=== PATIENT | male | born 1950 | race Caucasian/White ===

== ENCOUNTER 2022-08-16 12:41 | Inpatient (IN) | payer MEDICARE, OTHER ==
[~2022-08-16] VITALS: Ht 175.3 cm; Wt 81.6 kg
[2022-08-16] MEDS ORDERED: IV NORMAL SALINE 1000 ML BAG IV ONE (13:00)
[2022-08-16 13:26] LABS: HEMATOCRIT 44.2 % (36.7-47.1); MEAN CORPUSCULAR HEMOGLOBIN 29.5 uug (23.8-33.4); MEAN CORPUSCULAR VOLUME 88.5 fL (73.0-96.2); PLATELET COUNT (AUTO) 223 K/uL (152-348)
[2022-08-16] MEDS ORDERED: ATOR40TA PO (13:37)
[2022-08-16] MEDS ORDERED: ATEN50TA PO (13:37)
[2022-08-16] MEDS ORDERED: INSU100C SQ (13:37)
[2022-08-16] MEDS ORDERED: METF-442 PO (13:37)
[2022-08-16] MEDS ORDERED: INSU100V7 SQ (13:37)
[2022-08-16] MEDS ORDERED: ASPI81TA31 PO (13:37)
[2022-08-16 13:40] LABS: CARBON DIOXIDE 27 mmol/L (21-32); CHLORIDE 101 mmol/L (98-107); CREATININE 0.9 mg/dL (0.6-1.3); GLUCOSE 143 mg/dL (74-106); POTASSIUM 4.2 mmol/L (3.5-5.1); UREA NITROGEN, BLOOD 18 mg/dL (7-18)
[2022-08-16 13:53] LABS: ALANINE AMINOTRANSFERASE 17 U/L (16-63); ALKALINE PHOSPHATASE 54 U/L (50-136); ASPARTATE AMINOTRANSFERASE 17 U/L (15-37); BILIRUBIN,DIRECT 0.1 mg/dL (0.0-0.2); BILIRUBIN,TOTAL 0.3 mg/dL (0.2-1.0); TOTAL PROTEIN, SERUM 7.3 g/dL (6.4-8.2)
[2022-08-16 14:00] LABS: THYROID STIMULATING HORMONE 0.722 mIU/mL (0.358-3.740)
[2022-08-16] MEDS: ACETAMINOPHEN 325 MG TABLET PO ONE ×2 (14:28→14:51)
[2022-08-16] MEDS ORDERED: ACETAMINOPHEN 325 MG TABLET ONE (14:44)
[2022-08-16] MEDS ORDERED: CEFTRIAXONE 1 G in IV DEXTROSE 5% 50 ML IV ONE (15:00)
[2022-08-16] MEDS ORDERED: CEFTRIAXONE /D5W 50ML IVPB **ER PYXIS IV ONE (15:11)
[2022-08-16] MEDS ORDERED: AZITHROMYCIN IV 500 MG in IV DEXTROSE 5% 250 ML IV SCH (15:30)
[2022-08-16] MEDS ORDERED: MORPHINE SULFATE 2 MG/1 ML DISP.SYRIN IV PRN (15:30)
[2022-08-16] MEDS ORDERED: ACETAMINOPHEN 325 MG TABLET PO PRN (15:30)
[2022-08-16] MEDS ORDERED: ONDANSETRON 4 MG/2 ML VIAL IV PRN (15:30)
[2022-08-16] MEDS ORDERED: HYDROCODONE/APAP 5-325MG TABLET PO PRN (15:30)
[2022-08-16] MEDS ORDERED: TEMAZEPAM 15 MG CAPSULE PO PRN (15:30)
[2022-08-16] MEDS ORDERED: CEFTRIAXONE 1 G in IV DEXTROSE 5% 50 ML IV SCH (15:30)
[2022-08-16] MEDS ORDERED: MAGNESIUM HYDROXIDE 30 ML LIQUID UDC PO PRN (15:30)
[2022-08-16] MEDS ORDERED: ENOXAPARIN SODIUM 30 MG/0.3 ML DISP.SYRIN SQ SCH (15:30)
[2022-08-16] MEDS ORDERED: ENOXAPARIN SODIUM 30 MG/0.3 ML DISP.SYRIN ONE (15:43)
[2022-08-16] MEDS ORDERED: AZITHROMYCIN 500MG/ D5W 250ML IVPB **ER PYXIS ONLY IV ONE (15:43)
[2022-08-16 17:20] VITALS: BP 150/86
[2022-08-16 20:20] VITALS: BP 131/67
[2022-08-16] MEDS: ALBUTEROL SULFATE 2.5 MG/ 0.5 ML NEBU NEB PRN (20:20)
[2022-08-16] MEDS: IPRATROPIUM BROMIDE 0.5 MG/2.5 ML NEBU NEB PRN (20:20)
[2022-08-17 00:20] VITALS: BP 123/58
[2022-08-17 04:11] VITALS: BP 107/56
[2022-08-17 06:50] LABS: HEMATOCRIT 43.2 % (36.7-47.1); MEAN CORPUSCULAR HEMOGLOBIN 29.4 uug (23.8-33.4); MEAN CORPUSCULAR VOLUME 88.9 fL (73.0-96.2); PLATELET COUNT (AUTO) 202 K/uL (152-348)
[2022-08-17] MEDS: PANTOPRAZOLE SODIUM 40 MG TABLET.DR PO SCH (06:52)
[2022-08-17 07:24] LABS: CREATININE 0.9 mg/dL (0.6-1.3)
[2022-08-17 07:25] LABS: *BILIRUBIN,URIN NEGATIVE (NEGATIVE); *BLOOD, URINE NEGATIVE (NEGATIVE); *CLARITY,URINE CLEAR (CLEAR); *COLOR,URINE YELLOW (YELLOW); *KETONES,URINE NEGATIVE (NEGATIVE); *UROBILINOGEN,URINE 0.2 E.U./dl (NORMAL); LEUKOCYTE ESTERASE ,URINE NEGATIVE (NEGATIVE); NITRITE, URINE NEGATIVE (NEGATIVE); UGLUCOSE NEGATIVE (NEGATIVE)
[2022-08-17 07:48] LABS: THYROID STIMULATING HORMONE 0.933 mIU/mL (0.358-3.740)
[2022-08-17] MEDS: ENOXAPARIN SODIUM 30 MG/0.3 ML DISP.SYRIN SQ SCH (08:32)
[2022-08-17 09:19] LABS: WBC,URINE NONE SEEN /HPF (0-3)
[2022-08-17 09:20] LABS: RBC,URINE 0-3 /HPF (0-3); SQUAMOUS EPITHELIAL CELL,UR FEW /HPF (NONE SEEN)
[2022-08-17] MEDS: IPRATROPIUM BROMIDE 0.5 MG/2.5 ML NEBU NEB PRN (10:44)
[2022-08-17] MEDS: ALBUTEROL SULFATE 2.5 MG/ 0.5 ML NEBU NEB PRN (10:45)
[2022-08-17 11:23] VITALS: BP 104/62
[2022-08-17] MEDS: CEFTRIAXONE 1 G in IV DEXTROSE 5% 50 ML IV SCH (14:08)
[2022-08-17] MEDS ORDERED: FLUT1BLS12 IH (14:22)
[2022-08-17] MEDS ORDERED: CARV6.252 PO (14:37)
[2022-08-17] MEDS ORDERED: AZITHROMYCIN IV 500 MG in IV DEXTROSE 5% 250 ML IV SCH (15:00)
[2022-08-17] MEDS: AZITHROMYCIN IV 500 MG in IV DEXTROSE 5% 250 ML IV SCH (15:13)
[2022-08-17 15:26] VITALS: BP 115/66
[2022-08-17 20:00] VITALS: BP 127/74
[2022-08-18] VITALS: BP 108/66
[2022-08-18 04:00] VITALS: BP 127/66
[2022-08-18] MEDS: PANTOPRAZOLE SODIUM 40 MG TABLET.DR PO SCH (06:49)
[2022-08-18] MEDS ORDERED: predniSONE 20 MG TABLET PO SCH (08:00)
[2022-08-18 08:41] LABS: ABG BASE EXCESS 2.3 mmol/L; ABG HCO3 27.4 mmol/L; ABG PCO2 43.9 mmHg (35.0-45.0); ABG PH 7.413 (7.350-7.450); ABG SITE RIGHT RADIAL; ABG TOTAL HEMOGLOBIN 15.6 G/dL (13.5-18.0); COHb 0.9 % (0.5-1.5); MetHb 0.3 % (0.0-1.5); O2Hb 81.3 % (94.0-97.0); VENT MODE ROOM AIR
[2022-08-18 08:42] LABS: HEMATOCRIT 44.9 % (36.7-47.1); MEAN CORPUSCULAR HEMOGLOBIN 29.5 uug (23.8-33.4); MEAN CORPUSCULAR VOLUME 89.3 fL (73.0-96.2); PLATELET COUNT (AUTO) 194 K/uL (152-348)
[2022-08-18 08:49] LABS: CARBON DIOXIDE 32 mmol/L (21-32); CHLORIDE 103 mmol/L (98-107); CREATININE 0.9 mg/dL (0.6-1.3); GLUCOSE 172 mg/dL (74-106); MAGNESIUM 2.3 mg/dL (1.8-2.4); PHOSPHOROUS 3.2 mg/dL (2.5-4.9); POTASSIUM 4.4 mmol/L (3.5-5.1); UREA NITROGEN, BLOOD 14 mg/dL (7-18)
[2022-08-18] MEDS: ENOXAPARIN SODIUM 30 MG/0.3 ML DISP.SYRIN SQ SCH (08:58)
[2022-08-18] MEDS: ALBUTEROL SULFATE 2.5 MG/ 0.5 ML NEBU NEB PRN ×2 (09:58→16:57)
[2022-08-18] MEDS: IPRATROPIUM BROMIDE 0.5 MG/2.5 ML NEBU NEB PRN ×2 (09:58→16:57)
[2022-08-18 12:00] VITALS: BP 135/69
[2022-08-18] MEDS: CEFTRIAXONE 1 G in IV DEXTROSE 5% 50 ML IV SCH (15:08)
[2022-08-18] MEDS ORDERED: PRED20TA PO (15:25)
[2022-08-18] MEDS ORDERED: PRED2.5T PO (15:25)
[2022-08-18] MEDS ORDERED: LEVO500T90 PO (15:25)
[2022-08-18 15:45] VITALS: BP 119/69
[2022-08-18] MEDS: AZITHROMYCIN IV 500 MG in IV DEXTROSE 5% 250 ML IV SCH (15:47)
== END 2022-08-18 19:19 | disposition home health service (06) | DRG 178 ==
LOC: ER 12:44 → TELE3 15:58
PROVIDERS: ADMIT Nurse Practitioner Acute Care; ATTEND Nurse Practitioner Acute Care
DX: J15.6 Pneumonia due to other Gram-negative bacteria (principal); I50.32 Chronic diastolic (congestive) heart failure; J44.0 Chronic obstructive pulmonary disease with (acute) lower respiratory infection; Z20.822 Contact with and (suspected) exposure to COVID-19; E78.5 Hyperlipidemia, unspecified; I11.0 Hypertensive heart disease with heart failure; J84.10 Pulmonary fibrosis, unspecified; Z79.82 Long term (current) use of aspirin; J98.01 Acute bronchospasm; J84.89 Other specified interstitial pulmonary diseases; Z85.46 Personal history of malignant neoplasm of prostate; Z87.891 Personal history of nicotine dependence; I25.10 Atherosclerotic heart disease of native coronary artery without angina pectoris; Z79.4 Long term (current) use of insulin; J40 Bronchitis, not specified as acute or chronic; Z95.5 Presence of coronary angioplasty implant and graft; E11.65 Type 2 diabetes mellitus with hyperglycemia; Z79.84 Long term (current) use of oral hypoglycemic drugs; Z79.899 Other long term (current) drug therapy
CPT/HCPCS: 36415; 36600; 70450; 71045; 71250; 83605; 83735; 84100; 84153; 84443; 84484; 85025; 85730; 86480; 87040; 93005; 93307; 94640; A4663; G0378; J0456; J0696; J1650; J3590; J7040; J7050; J7512